=== PATIENT | female | born 1975 | race Caucasian/White ===

== ENCOUNTER 2024-07-09 14:22 | Outpatient (CLI) | payer BC | END 2024-07-09 14:23 | disposition home or self-care (01) | LOC: BICCT 14:22 | PROVIDERS: ATTEND Family Medicine | DX: R31.29 Other microscopic hematuria (principal); R16.0 Hepatomegaly, not elsewhere classified | CPT/HCPCS: 74178 ==

== ENCOUNTER 2024-08-19 12:50 | Outpatient (CLI) | payer BC | END 2024-08-19 12:51 | disposition home or self-care (01) | LOC: BICMAMMO 12:50 | PROVIDERS: ATTEND Family Medicine | DX: Z12.31 Encounter for screening mammogram for malignant neoplasm of breast (principal) | CPT/HCPCS: 77063; 77067 ==